=== PATIENT | male | born 1985 | race Caucasian/White ===

== ENCOUNTER 2022-05-07 01:45 | Inpatient (IN) ==
[2022-05-07] MEDS ORDERED: PANTOPRAZOLE 40 MG VIAL IV STA (02:09)
[2022-05-07] MEDS ORDERED: HYDROmorphone 1 MG/1 ML SYRINGE IV STA (02:09)
[2022-05-07] MEDS ORDERED: ONDANSETRON 4 MG/2 ML VIAL IV STA (02:09)
[2022-05-07] MEDS ORDERED: SODIUM CHLORIDE 0.9% 1,000 ML IV STA (02:09)
[2022-05-07 02:16] LABS: Basophils # 0.1 10*3/uL (0.0-0.2); Basophils % 0.3 % (0.0-0.8); Eosinophils # 0.2 10*3/uL (0.0-0.87); Eosinophils % 0.8 % (0.00-10.9); Hematocrit 39.6 VOL% (42.0-52.0); Hemoglobin 12.4 GM/DL (14.0-18.0); Immature Granulocytes % 0.5 %; Immature Granulocytes Absolute 0.09 #; Lymphocytes # 2.9 10*3/uL (1.4-4.0); Lymphocytes % 15.8 % (21.2-54.2); Mean Corpuscular HGB Conc 31.3 GM/DL (32-36); Mean Corpuscular Volume 80.8 FL (87-102); Mean Platelet Volume 8.7 FL (9.6-12.0); Monocytes # 1.2 10*3/uL (0.11-0.8); Monocytes % 6.7 % (1.7-12.7); Neutrophils % 75.9 % (38.7-73.9); Platelet Count 537 T/CUMM (130-400); Red Cell Distribution Width 13.8 % (9.3-17.3); White Blood Count 18.5 T/CUMM (4-12)
[2022-05-07 02:57] LABS: Alanine Aminotransferase 26 U/L (16-61); Alkaline Phosphatase 112 U/L (45-117); Amylase 21 U/L (25-115); Aspartate Amino Transferase 20 U/L (0-37); Bilirubin,Total < 0.39 MG/DL (0.20-1.00); Blood Urea Nitrogen 8 MG/DL (7-18); Calcium 9.3 MG/DL (8.5-10.1); Carbon Dioxide 27 MMOL/L (21-32); Chloride 107 MMOL/L (98-107); Glucose 125 MG/DL (74-106); Osmolality,Calculated 277.4 MOS/KG (273-304); Potassium 4.3 MMOL/L (3.5-5.1); Sodium 140 MMOL/L (136-145); Total Protein 7.6 G/DL (6.4-8.2)
[2022-05-07] MEDS ORDERED: GLUCAGON 1 MG VIAL IM PRN (04:11)
[2022-05-07] MEDS ORDERED: DEXTROSE 10% 250 ML BAG IV PRN (04:11)
[2022-05-07] MEDS ORDERED: ALUMINUM/MAGNES/SIMETH MAX STR 30 ML UDCUP PO PRN (04:11)
[2022-05-07 04:18] LABS: Bilirubin,Urine Negative (Negative); Blood, Urine Negative (Negative); Glucose,Urine (UA) Negative (Negative); Ketones,Urine Negative (Negative); Mucus,Urine Occasional /LPF (Occasional); Nitrite,Urine Negative (Negative); Protein,Urine Negative (Negative); RBC,Urine 2 /HPF (0-4); Urine Appearance Clear (Clear); Urine Color Yellow (Yellow); Urine Specific Gravity 1.015 (1.001-1.035); Urine Urobilinogen 0.2 eU/dL (<2.0); Urine pH 5.5 (4.5-8.0)
[2022-05-07] MEDS ORDERED: LACTATED RINGERS 1,000 ML IV SCH (05:00)
[2022-05-07] MEDS: HYDROmorphone 1 MG/1 ML SYRINGE IV PRN ×5 (05:36→20:33)
[2022-05-07] MEDS: ONDANSETRON 4 MG/2 ML VIAL IV PRN ×4 (05:36→20:33)
[2022-05-07] MEDS: ACETAMINOPHEN 325 MG TABLET PO PRN (06:22)
[2022-05-07] MEDS: DOCUSATE SODIUM 100 MG CAPSULE PO SCH ×2 (09:22→20:34)
[2022-05-07] MEDS: PANTOPRAZOLE 40 MG TABLET PO SCH (09:22)
[2022-05-07] MEDS: PIPERACILLIN/TAZOBACTAM 3,375 MG in SODIUM CHLORIDE 0.9% 100 ML IV SCH ×2 (10:44→20:34)
[2022-05-07] MEDS: BISACODYL 5 MG TABLET PO SCH ×2 (10:44→20:34)
[2022-05-07] MEDS ORDERED: FERROUS SULFATE 325 MG TABLET PO SCH (11:00)
[2022-05-07] MEDS: SODIUM CHLORIDE 0.9% 1,000 ML IV SCH (12:48)
[2022-05-07] MEDS ORDERED: PROMETHAZINE INJ 25 MG in SODIUM CHLORIDE 0.9% 50 ML IV PRN (13:30)
[2022-05-07] MEDS: VANCOMYCIN INJ 750 MG in SODIUM CHLORIDE 0.9% 250 ML IV SCH (14:59)
[2022-05-07] MEDS ORDERED: POLYETHYLENE GLYCOL POWDER 255 GM BOTTLE PO ONE (18:00)
[2022-05-07] MEDS ORDERED: MAGNESIUM CITRATE 300 ML BOTTLE PO ONE (21:00)
[2022-05-07] MEDS ORDERED: MAGNESIUM HYDROXIDE SUSP 30 ML UDCUP PO ONE (21:00)
[2022-05-08] MEDS: ONDANSETRON 4 MG/2 ML VIAL IV PRN ×2 (03:17→12:49)
[2022-05-08] MEDS: VANCOMYCIN INJ 750 MG in SODIUM CHLORIDE 0.9% 250 ML IV SCH ×2 (03:18→16:12)
[2022-05-08] MEDS: HYDROmorphone 1 MG/1 ML SYRINGE IV PRN ×2 (03:18→08:24)
[2022-05-08 04:55] LABS: Basophils # 0.1 10*3/uL (0.0-0.2); Basophils % 0.2 % (0.0-0.8); Hematocrit 38.5 VOL% (42.0-52.0); Immature Granulocytes % 0.9 %; Immature Granulocytes Absolute 0.22 #; Lymphocytes # 1.8 10*3/uL (1.4-4.0); Lymphocytes % 7.3 % (21.2-54.2); Mean Corpuscular HGB Conc 31.2 GM/DL (32-36); Mean Corpuscular Volume 81.2 FL (87-102); Monocytes # 1.2 10*3/uL (0.11-0.8); Monocytes % 4.9 % (1.7-12.7); Neutrophils % 86.7 % (38.7-73.9); Platelet Count 453 T/CUMM (130-400); Red Blood Count 4.74 MC/CUMM (3.8-5.5); White Blood Count 24.3 T/CUMM (4-12)
[2022-05-08 05:13] LABS: Albumin 2.7 G/DL (3.4-5.0); Bilirubin,Total 0.5 MG/DL (0.20-1.00); Calcium 8.8 MG/DL (8.5-10.1); Osmolality,Calculated 272.8 MOS/KG (273-304); Total Protein 7.3 G/DL (6.4-8.2)
[2022-05-08 05:20] LABS: Hypochromia Slight; Lymphocytes 5 % (20-55); Microcytosis Slight; Platelet Estimate Adequate; Total Cells Counted 100
[2022-05-08 05:35] LABS: % Iron Saturation 6.7 % (18-50); Ferritin 276.9 ng/mL (26-388)
[2022-05-08] MEDS: BISACODYL 5 MG TABLET PO SCH (06:17)
[2022-05-08] MEDS: PIPERACILLIN/TAZOBACTAM 3,375 MG in SODIUM CHLORIDE 0.9% 100 ML IV SCH ×3 (06:31→23:35)
[2022-05-08] MEDS ORDERED: LACTATED RINGERS 1,000 ML IV SCH (10:30)
[2022-05-08] MEDS: SODIUM CHLORIDE 0.9% 1,000 ML IV SCH (12:49)
[2022-05-08] MEDS: DOCUSATE SODIUM 100 MG CAPSULE PO SCH ×2 (12:49→23:33)
[2022-05-08] MEDS: PANTOPRAZOLE 40 MG TABLET PO SCH (12:50)
[2022-05-08] MEDS: FERRIC GLUCONATE COMPLEX 125 MG in SODIUM CHLORIDE 0.9% 100 ML IV SCH (12:50)
[2022-05-08] MEDS: ACETAMINOPHEN 325 MG TABLET PO PRN (16:11)
[2022-05-08] MEDS ORDERED: NICOTINE 21 MG/24 HR PATCH TRANSDERM PRN (16:14)
[2022-05-08] MEDS: POLYETHYLENE GLYCOL POWDER 17 GM PACK PO SCH (23:34)
[2022-05-09] MEDS: VANCOMYCIN INJ 750 MG in SODIUM CHLORIDE 0.9% 250 ML IV SCH ×2 (03:40→16:06)
[2022-05-09 06:07] LABS: Basophils % 0.2 % (0.0-0.8); Eosinophils # 0.1 10*3/uL (0.0-0.87); Eosinophils % 0.4 % (0.00-10.9); Hematocrit 28.2 VOL% (42.0-52.0); Hemoglobin 8.9 GM/DL (14.0-18.0); Immature Granulocytes % 0.4 %; Immature Granulocytes Absolute 0.07 #; Lymphocytes # 1.9 10*3/uL (1.4-4.0); Lymphocytes % 12.3 % (21.2-54.2); Mean Corpuscular HGB Conc 31.6 GM/DL (32-36); Mean Corpuscular Volume 79.9 FL (87-102); Mean Platelet Volume 9.4 FL (9.6-12.0); Monocytes # 1.1 10*3/uL (0.11-0.8); Monocytes % 6.9 % (1.7-12.7); Neutrophils % 79.8 % (38.7-73.9); Platelet Count 368 T/CUMM (130-400); Red Blood Count 3.53 MC/CUMM (3.8-5.5); Red Cell Distribution Width 14.2 % (9.3-17.3); White Blood Count 15.6 T/CUMM (4-12)
[2022-05-09] MEDS: PIPERACILLIN/TAZOBACTAM 3,375 MG in SODIUM CHLORIDE 0.9% 100 ML IV SCH ×3 (06:10→21:28)
[2022-05-09 06:39] LABS: Calcium 8.1 MG/DL (8.5-10.1); Osmolality,Calculated 274.5 MOS/KG (273-304); Potassium 4.2 MMOL/L (3.5-5.1)
[2022-05-09] MEDS: POLYETHYLENE GLYCOL POWDER 17 GM PACK PO SCH ×2 (09:14→21:29)
[2022-05-09] MEDS: PANTOPRAZOLE 40 MG TABLET PO SCH (09:14)
[2022-05-09] MEDS: DOCUSATE SODIUM 100 MG CAPSULE PO SCH ×2 (09:14→21:29)
[2022-05-09] MEDS: FERRIC GLUCONATE COMPLEX 125 MG in SODIUM CHLORIDE 0.9% 100 ML IV SCH (09:50)
[2022-05-09] MEDS: SODIUM CHLORIDE 0.9% 1,000 ML IV SCH ×2 (12:00→13:57)
[2022-05-09] MEDS: VANCOMYCIN INJ 1,000 MG in SODIUM CHLORIDE 0.9% 100 ML IV SCH (16:21)
[2022-05-09] MEDS: DICYCLOMINE 10 MG CAPSULE PO SCH (21:29)
[2022-05-10] MEDS: VANCOMYCIN INJ 1,000 MG in SODIUM CHLORIDE 0.9% 100 ML IV SCH ×3 (00:53→15:41)
[2022-05-10] MEDS: HYDROmorphone 1 MG/1 ML SYRINGE IV PRN (03:06)
[2022-05-10] MEDS: ONDANSETRON 4 MG/2 ML VIAL IV PRN (03:09)
[2022-05-10] MEDS: PIPERACILLIN/TAZOBACTAM 3,375 MG in SODIUM CHLORIDE 0.9% 100 ML IV SCH ×3 (06:04→21:49)
[2022-05-10 06:54] LABS: Basophils % 0.3 % (0.0-0.8); Eosinophils # 0.1 10*3/uL (0.0-0.87); Eosinophils % 0.8 % (0.00-10.9); Hematocrit 32.1 VOL% (42.0-52.0); Hemoglobin 9.9 GM/DL (14.0-18.0); Immature Granulocytes % 0.6 %; Immature Granulocytes Absolute 0.08 #; Lymphocytes # 1.8 10*3/uL (1.4-4.0); Lymphocytes % 13.9 % (21.2-54.2); Mean Corpuscular HGB Conc 30.8 GM/DL (32-36); Mean Corpuscular Volume 81.1 FL (87-102); Monocytes # 0.9 10*3/uL (0.11-0.8); Monocytes % 7.1 % (1.7-12.7); Neutrophils % 77.3 % (38.7-73.9); Platelet Count 413 T/CUMM (130-400); Red Blood Count 3.96 MC/CUMM (3.8-5.5); Red Cell Distribution Width 14.3 % (9.3-17.3); White Blood Count 12.8 T/CUMM (4-12)
[2022-05-10 07:14] LABS: Calcium 8.8 MG/DL (8.5-10.1); Osmolality,Calculated 273.5 MOS/KG (273-304); Potassium 3.5 MMOL/L (3.5-5.1)
[2022-05-10 07:17] LABS: Calcium 8.7 MG/DL (8.5-10.1); Osmolality,Calculated 277.3 MOS/KG (273-304); Potassium 3.9 MMOL/L (3.5-5.1)
[2022-05-10] MEDS: POLYETHYLENE GLYCOL POWDER 17 GM PACK PO SCH ×2 (09:24→21:48)
[2022-05-10] MEDS: PANTOPRAZOLE 40 MG TABLET PO SCH (09:24)
[2022-05-10] MEDS: DOCUSATE SODIUM 100 MG CAPSULE PO SCH ×2 (09:24→21:49)
[2022-05-10] MEDS: DICYCLOMINE 10 MG CAPSULE PO SCH ×3 (09:24→21:48)
[2022-05-10] MEDS: FERRIC GLUCONATE COMPLEX 125 MG in SODIUM CHLORIDE 0.9% 100 ML IV SCH (09:25)
[2022-05-10] MEDS: SODIUM CHLORIDE 0.9% 1,000 ML IV SCH ×2 (15:44→15:46)
[2022-05-10] MEDS: ACETAMINOPHEN 325 MG TABLET PO PRN (21:48)
[2022-05-11] MEDS ORDERED: VANCOMYCIN INJ 1,000 MG in SODIUM CHLORIDE 0.9% 100 ML IV SCH (04:00)
[2022-05-11] MEDS: PIPERACILLIN/TAZOBACTAM 3,375 MG in SODIUM CHLORIDE 0.9% 100 ML IV SCH ×3 (05:25→22:12)
[2022-05-11 05:28] LABS: Basophils % 0.3 % (0.0-0.8); Eosinophils # 0.1 10*3/uL (0.0-0.87); Eosinophils % 0.9 % (0.00-10.9); Hematocrit 29.6 VOL% (42.0-52.0); Hemoglobin 9.4 GM/DL (14.0-18.0); Immature Granulocytes % 0.8 %; Immature Granulocytes Absolute 0.12 #; Lymphocytes # 1.9 10*3/uL (1.4-4.0); Lymphocytes % 13.2 % (21.2-54.2); Mean Corpuscular HGB Conc 31.8 GM/DL (32-36); Mean Corpuscular Volume 79.4 FL (87-102); Mean Platelet Volume 9.3 FL (9.6-12.0); Monocytes # 1.2 10*3/uL (0.11-0.8); Monocytes % 8.5 % (1.7-12.7); Neutrophils % 76.3 % (38.7-73.9); Platelet Count 446 T/CUMM (130-400); Red Blood Count 3.73 MC/CUMM (3.8-5.5); Red Cell Distribution Width 14.4 % (9.3-17.3); White Blood Count 14.6 T/CUMM (4-12)
[2022-05-11 06:16] LABS: Calcium 8.3 MG/DL (8.5-10.1); Osmolality,Calculated 280.1 MOS/KG (273-304); Potassium 3.5 MMOL/L (3.5-5.1)
[2022-05-11] MEDS ORDERED: DEXAMETHASONE 4 MG/1 ML VIAL ONE (06:29)
[2022-05-11] MEDS ORDERED: ONDANSETRON 4 MG/2 ML VIAL ONE (06:29)
[2022-05-11] MEDS ORDERED: SEVOFLURANE 1 UNIT/15 MINUTE INH ONE (06:29)
[2022-05-11] MEDS ORDERED: ROCURONIUM 50 MG/5 ML VIAL IV ONE (06:29)
[2022-05-11] MEDS ORDERED: MIDAZOLAM 2 MG/2 ML VIAL ONE (06:29)
[2022-05-11] MEDS ORDERED: LACTATED RINGERS 1,000 ML IV ONE (06:29)
[2022-05-11] MEDS ORDERED: propofoL 200 MG/20 ML VIAL IV ONE ×2 (06:29→08:28)
[2022-05-11] MEDS ORDERED: fentaNYL 100 MCG/2 ML VIAL ONE ×2 (06:29→07:46)
[2022-05-11] MEDS ORDERED: ROPIVACAINE 0.5% 30 ML VIAL ONE (06:41)
[2022-05-11] MEDS ORDERED: PHENYLEPHRINE 1 MG/10 ML SYRINGE IV ONE (07:55)
[2022-05-11] MEDS ORDERED: GLYCOPYRROLATE 0.4 MG/2 ML VIAL ONE (08:30)
[2022-05-11] MEDS ORDERED: NEOSTIGMINE 10 MG/10 ML VIAL ONE (08:30)
[2022-05-11] MEDS: fentaNYL 2 MCG/ROPIV 0.2% EPID 100 ML EPIDURAL SCH ×3 (09:00→21:30)
[2022-05-11] MEDS ORDERED: ALBUTEROL/IPRATROPIUM 3 ML NEB RESP TX PRN (09:13)
[2022-05-11] MEDS ORDERED: HYDROmorphone 1 MG/1 ML SYRINGE IV PRN (09:13)
[2022-05-11] MEDS ORDERED: LIDOCAINE 100 MG/5 ML SYRINGE ONE (09:29)
[2022-05-11] MEDS: FERRIC GLUCONATE COMPLEX 125 MG in SODIUM CHLORIDE 0.9% 100 ML IV SCH (11:19)
[2022-05-11] MEDS: LACTATED RINGERS 1,000 ML IV SCH ×2 (12:50→22:11)
[2022-05-11] MEDS: POLYETHYLENE GLYCOL POWDER 17 GM PACK PO SCH ×2 (12:52→22:11)
[2022-05-11] MEDS: DOCUSATE SODIUM 100 MG CAPSULE PO SCH ×2 (12:52→22:11)
[2022-05-11] MEDS: DICYCLOMINE 10 MG CAPSULE PO SCH ×3 (12:52→22:11)
[2022-05-11] MEDS: PANTOPRAZOLE 40 MG TABLET PO SCH (12:54)
[2022-05-11] MEDS: SODIUM CHLORIDE 0.9% 1,000 ML IV SCH (12:54)
[2022-05-11] MEDS ORDERED: buprenorphine HCL 0.3 MG/ML VIAL ONE (14:22)
[2022-05-11] MEDS ORDERED: KETOROLAC 30 MG/1 ML VIAL ONE (14:32)
[2022-05-12] MEDS: KETOROLAC 15 MG/1 ML VIAL IV PRN ×3 (01:16→17:43)
[2022-05-12] MEDS: LACTATED RINGERS 1,000 ML IV SCH ×2 (03:21→06:37)
[2022-05-12] MEDS: PIPERACILLIN/TAZOBACTAM 3,375 MG in SODIUM CHLORIDE 0.9% 100 ML IV SCH ×3 (05:06→21:25)
[2022-05-12 05:54] LABS: Basophils # 0.1 10*3/uL (0.0-0.2); Basophils % 0.3 % (0.0-0.8); Eosinophils % 0.1 % (0.00-10.9); Hematocrit 32.2 VOL% (42.0-52.0); Hemoglobin 10.1 GM/DL (14.0-18.0); Immature Granulocytes % 0.9 %; Immature Granulocytes Absolute 0.15 #; Lymphocytes # 1.8 10*3/uL (1.4-4.0); Lymphocytes % 11.4 % (21.2-54.2); Mean Corpuscular HGB Conc 31.4 GM/DL (32-36); Mean Corpuscular Volume 81.1 FL (87-102); Mean Platelet Volume 9.2 FL (9.6-12.0); Monocytes # 1.1 10*3/uL (0.11-0.8); Monocytes % 6.9 % (1.7-12.7); Neutrophils % 80.4 % (38.7-73.9); Platelet Count 496 T/CUMM (130-400); Red Blood Count 3.97 MC/CUMM (3.8-5.5); Red Cell Distribution Width 14.7 % (9.3-17.3); White Blood Count 15.8 T/CUMM (4-12)
[2022-05-12 06:12] LABS: Calcium 8.5 MG/DL (8.5-10.1); Osmolality,Calculated 289.6 MOS/KG (273-304); Potassium 4.4 MMOL/L (3.5-5.1)
[2022-05-12] MEDS: fentaNYL 2 MCG/ROPIV 0.2% EPID 100 ML EPIDURAL SCH ×3 (06:35→23:13)
[2022-05-12] MEDS: PANTOPRAZOLE 40 MG VIAL IV SCH (09:20)
[2022-05-12] MEDS: FERRIC GLUCONATE COMPLEX 125 MG in SODIUM CHLORIDE 0.9% 100 ML IV SCH (09:21)
[2022-05-12] MEDS ORDERED: LACTATED RINGERS 1,000 ML IV ONE (09:58)
[2022-05-12] MEDS ORDERED: ENOXAPARIN 40 MG/0.4 ML SYRINGE SUBCUT SCH (10:00)
[2022-05-12] MEDS: DOCUSATE SODIUM 100 MG CAPSULE PO SCH ×2 (10:07→21:59)
[2022-05-12] MEDS: POLYETHYLENE GLYCOL POWDER 17 GM PACK PO SCH ×2 (10:07→22:00)
[2022-05-12] MEDS: DICYCLOMINE 10 MG CAPSULE PO SCH ×3 (10:08→21:59)
[2022-05-13] MEDS: LACTATED RINGERS 1,000 ML IV SCH ×3 (03:03→13:27)
[2022-05-13] MEDS: PIPERACILLIN/TAZOBACTAM 3,375 MG in SODIUM CHLORIDE 0.9% 100 ML IV SCH ×3 (04:59→21:26)
[2022-05-13 05:11] LABS: Basophils % 0.2 % (0.0-0.8); Eosinophils # 0.1 10*3/uL (0.0-0.87); Eosinophils % 0.5 % (0.00-10.9); Hematocrit 28.3 VOL% (42.0-52.0); Hemoglobin 8.9 GM/DL (14.0-18.0); Immature Granulocytes % 0.9 %; Immature Granulocytes Absolute 0.17 #; Lymphocytes # 1.8 10*3/uL (1.4-4.0); Mean Corpuscular HGB Conc 31.4 GM/DL (32-36); Mean Corpuscular Volume 80.4 FL (87-102); Mean Platelet Volume 9.3 FL (9.6-12.0); Monocytes % 5.1 % (1.7-12.7); Neutrophils % 84.3 % (38.7-73.9); Platelet Count 515 T/CUMM (130-400); Red Blood Count 3.52 MC/CUMM (3.8-5.5); Red Cell Distribution Width 15.4 % (9.3-17.3); White Blood Count 19.6 T/CUMM (4-12)
[2022-05-13 05:20] LABS: Calcium 8.3 MG/DL (8.5-10.1); Potassium 3.8 MMOL/L (3.5-5.1)
[2022-05-13] MEDS ORDERED: MIDAZOLAM 2 MG/2 ML VIAL ONE (07:44)
[2022-05-13] MEDS ORDERED: propofoL 200 MG/20 ML VIAL IV ONE (07:44)
[2022-05-13] MEDS ORDERED: fentaNYL 100 MCG/2 ML VIAL ONE (07:44)
[2022-05-13] MEDS ORDERED: LIDOCAINE 2% 5 ML VIAL ONE (07:44)
[2022-05-13] MEDS: fentaNYL 2 MCG/ROPIV 0.2% EPID 100 ML EPIDURAL SCH ×3 (08:00→22:42)
[2022-05-13] MEDS ORDERED: buprenorphine HCL 0.3 MG/ML VIAL ONE (08:09)
[2022-05-13] MEDS ORDERED: SUCCINYLCHOLINE 200 MG/10 ML VIAL ONE (09:45)
[2022-05-13] MEDS ORDERED: ONDANSETRON 4 MG/2 ML VIAL ONE (09:45)
[2022-05-13] MEDS ORDERED: SEVOFLURANE 1 UNIT/15 MINUTE INH ONE (09:45)
[2022-05-13] MEDS: POLYETHYLENE GLYCOL POWDER 17 GM PACK PO SCH ×2 (10:22→21:28)
[2022-05-13] MEDS: DICYCLOMINE 10 MG CAPSULE PO SCH ×3 (10:22→21:27)
[2022-05-13] MEDS: DOCUSATE SODIUM 100 MG CAPSULE PO SCH ×2 (10:22→21:27)
[2022-05-13] MEDS: PANTOPRAZOLE 40 MG VIAL IV SCH (10:57)
[2022-05-13] MEDS: metroNIDAZOLE INJ 500 MG/100 ML PREMIX IV SCH (17:57)
[2022-05-14] MEDS: ACETAMINOPHEN 325 MG TABLET PO PRN ×2 (00:23→05:01)
[2022-05-14] MEDS: metroNIDAZOLE INJ 500 MG/100 ML PREMIX IV SCH ×2 (00:38→07:07)
[2022-05-14] MEDS: PIPERACILLIN/TAZOBACTAM 3,375 MG in SODIUM CHLORIDE 0.9% 100 ML IV SCH ×3 (05:00→21:06)
[2022-05-14 05:01] LABS: Basophils % 0.2 % (0.0-0.8); Eosinophils # 0.1 10*3/uL (0.0-0.87); Eosinophils % 0.5 % (0.00-10.9); Hematocrit 27.9 VOL% (42.0-52.0); Hemoglobin 8.9 GM/DL (14.0-18.0); Immature Granulocytes % 2.4 %; Immature Granulocytes Absolute 0.58 #; Lymphocytes # 1.5 10*3/uL (1.4-4.0); Mean Corpuscular HGB Conc 31.9 GM/DL (32-36); Mean Corpuscular Volume 79.9 FL (87-102); Mean Platelet Volume 9.2 FL (9.6-12.0); Monocytes # 1.4 10*3/uL (0.11-0.8); Monocytes % 5.7 % (1.7-12.7); Neutrophils % 85.2 % (38.7-73.9); Platelet Count 502 T/CUMM (130-400); Red Blood Count 3.49 MC/CUMM (3.8-5.5); Red Cell Distribution Width 15.2 % (9.3-17.3); White Blood Count 24.4 T/CUMM (4-12)
[2022-05-14] MEDS: LACTATED RINGERS 1,000 ML IV SCH ×2 (05:01→16:20)
[2022-05-14 05:19] LABS: Albumin 1.5 G/DL (3.4-5.0); Bilirubin,Total 0.5 MG/DL (0.20-1.00); Calcium 7.7 MG/DL (8.5-10.1); Osmolality,Calculated 281.3 MOS/KG (273-304); Potassium 3.5 MMOL/L (3.5-5.1); Total Protein 4.9 G/DL (6.4-8.2)
[2022-05-14 05:26] LABS: Hypochromia Slight; Lymphocytes 8 % (20-55); Microcytosis Slight; Platelet Estimate Increased; Total Cells Counted 100
[2022-05-14] MEDS: DICYCLOMINE 10 MG CAPSULE PO SCH ×3 (08:21→21:05)
[2022-05-14] MEDS: POLYETHYLENE GLYCOL POWDER 17 GM PACK PO SCH (08:21)
[2022-05-14] MEDS: DOCUSATE SODIUM 100 MG CAPSULE PO SCH (08:21)
[2022-05-14 08:52] LABS: Mucus,Urine Occasional /LPF (Occasional); RBC,Urine 7 /HPF (0-4); Squamous Epithelial Cell,Urine Occasional /HPF (0-10)
[2022-05-14 09:01] LABS: Urine Appearance Clear (Clear); Urine Color Yellow (Yellow); Urine pH 5.5 (4.5-8.0)
[2022-05-14] MEDS: PANTOPRAZOLE 40 MG VIAL IV SCH (09:02)
[2022-05-14 09:03] LABS: Bilirubin,Urine Negative (Negative); Blood, Urine Trace mg/dL (Negative); Glucose,Urine (UA) Negative (Negative); Ketones,Urine Negative (Negative); Nitrite,Urine Negative (Negative); Protein,Urine Negative (Negative); Urine Specific Gravity 1.015 (1.001-1.035); Urine Urobilinogen 0.2 eU/dL (<2.0)
[2022-05-14] MEDS ORDERED: buprenorphine HCL 0.3 MG/ML VIAL ONE (09:16)
[2022-05-14] MEDS: FERRIC GLUCONATE COMPLEX 125 MG in SODIUM CHLORIDE 0.9% 100 ML IV SCH (11:49)
[2022-05-14] MEDS: LINEZOLID INJ 600 MG/300 ML PREMIX IV SCH (13:04)
[2022-05-15] MEDS: LINEZOLID INJ 600 MG/300 ML PREMIX IV SCH ×2 (01:33→11:18)
[2022-05-15] MEDS: LACTATED RINGERS 1,000 ML IV SCH ×5 (01:48→12:37)
[2022-05-15 05:29] LABS: Basophils # 0.1 10*3/uL (0.0-0.2); Basophils % 0.3 % (0.0-0.8); Eosinophils # 0.5 10*3/uL (0.0-0.87); Eosinophils % 2.4 % (0.00-10.9); Hematocrit 26.9 VOL% (42.0-52.0); Hemoglobin 8.6 GM/DL (14.0-18.0); Immature Granulocytes % 0.8 %; Immature Granulocytes Absolute 0.17 #; Lymphocytes # 1.7 10*3/uL (1.4-4.0); Lymphocytes % 8.1 % (21.2-54.2); Mean Corpuscular Volume 79.6 FL (87-102); Mean Platelet Volume 9.3 FL (9.6-12.0); Monocytes # 1.1 10*3/uL (0.11-0.8); Neutrophils % 83.4 % (38.7-73.9); Platelet Count 507 T/CUMM (130-400); Red Blood Count 3.38 MC/CUMM (3.8-5.5); Red Cell Distribution Width 15.7 % (9.3-17.3)
[2022-05-15] MEDS: PIPERACILLIN/TAZOBACTAM 3,375 MG in SODIUM CHLORIDE 0.9% 100 ML IV SCH ×3 (05:42→20:58)
[2022-05-15 05:53] LABS: Alanine Aminotransferase 14 U/L (16-61); Albumin 1.4 G/DL (3.4-5.0); Alkaline Phosphatase 104 U/L (45-117); Aspartate Amino Transferase 13 U/L (0-37); Bilirubin,Total < 0.39 MG/DL (0.20-1.00); Blood Urea Nitrogen 12 MG/DL (7-18); Carbon Dioxide 22 MMOL/L (21-32); Chloride 109 MMOL/L (98-107); Glucose 98 MG/DL (74-106); Osmolality,Calculated 280.3 MOS/KG (273-304); Potassium 3.1 MMOL/L (3.5-5.1); Sodium 141 MMOL/L (136-145); Total Protein 5.2 G/DL (6.4-8.2)
[2022-05-15 06:01] LABS: Band Neutrophils 2 % (0-10); Hypochromia 1+; Lymphocytes 3 % (20-55); Microcytosis 1+; Ovalocytes Slight; Polychromasia Slight; Total Cells Counted 100
[2022-05-15] MEDS: PANTOPRAZOLE 40 MG VIAL IV SCH (09:36)
[2022-05-15] MEDS: FERRIC GLUCONATE COMPLEX 125 MG in SODIUM CHLORIDE 0.9% 100 ML IV SCH (09:39)
[2022-05-15] MEDS: ENOXAPARIN 40 MG/0.4 ML SYRINGE SUBCUT SCH (09:43)
[2022-05-15] MEDS: DICYCLOMINE 10 MG CAPSULE PO SCH ×3 (09:43→20:58)
[2022-05-15] MEDS: HYDROmorphone 1 MG/1 ML SYRINGE IV PRN (11:15)
[2022-05-16] MEDS: LINEZOLID INJ 600 MG/300 ML PREMIX IV SCH ×2 (00:51→12:18)
[2022-05-16] MEDS: PIPERACILLIN/TAZOBACTAM 3,375 MG in SODIUM CHLORIDE 0.9% 100 ML IV SCH ×3 (04:48→23:18)
[2022-05-16 05:50] LABS: Basophils % 0.3 % (0.0-0.8); Eosinophils # 0.6 10*3/uL (0.0-0.87); Eosinophils % 4.7 % (0.00-10.9); Hematocrit 27.5 VOL% (42.0-52.0); Hemoglobin 8.6 GM/DL (14.0-18.0); Immature Granulocytes % 0.9 %; Immature Granulocytes Absolute 0.12 #; Lymphocytes # 1.8 10*3/uL (1.4-4.0); Lymphocytes % 13.9 % (21.2-54.2); Mean Corpuscular HGB Conc 31.3 GM/DL (32-36); Mean Corpuscular Volume 81.4 FL (87-102); Mean Platelet Volume 9.4 FL (9.6-12.0); Monocytes % 7.4 % (1.7-12.7); Neutrophils % 72.8 % (38.7-73.9); Platelet Count 562 T/CUMM (130-400); Red Blood Count 3.38 MC/CUMM (3.8-5.5); Red Cell Distribution Width 16.1 % (9.3-17.3); White Blood Count 12.9 T/CUMM (4-12)
[2022-05-16 06:14] LABS: Alanine Aminotransferase 15 U/L (16-61); Albumin 1.4 G/DL (3.4-5.0); Alkaline Phosphatase 80 U/L (45-117); Aspartate Amino Transferase 11 U/L (0-37); Bilirubin,Total < 0.39 MG/DL (0.20-1.00); Blood Urea Nitrogen 8 MG/DL (7-18); Carbon Dioxide 25 MMOL/L (21-32); Chloride 112 MMOL/L (98-107); Glucose 110 MG/DL (74-106); Osmolality,Calculated 284.8 MOS/KG (273-304); Potassium 2.9 MMOL/L (3.5-5.1); Sodium 144 MMOL/L (136-145); Total Protein 5.2 G/DL (6.4-8.2)
[2022-05-16] MEDS: ENOXAPARIN 40 MG/0.4 ML SYRINGE SUBCUT SCH (08:43)
[2022-05-16] MEDS: PANTOPRAZOLE 40 MG VIAL IV SCH (09:02)
[2022-05-16] MEDS: FERRIC GLUCONATE COMPLEX 125 MG in SODIUM CHLORIDE 0.9% 100 ML IV SCH (09:03)
[2022-05-16] MEDS: DICYCLOMINE 10 MG CAPSULE PO SCH ×3 (09:03→23:18)
[2022-05-17] MEDS: LINEZOLID INJ 600 MG/300 ML PREMIX IV SCH ×2 (03:20→16:26)
[2022-05-17] MEDS: PIPERACILLIN/TAZOBACTAM 3,375 MG in SODIUM CHLORIDE 0.9% 100 ML IV SCH ×2 (04:29→18:40)
[2022-05-17 08:07] LABS: Basophils % 0.3 % (0.0-0.8); Eosinophils # 0.4 10*3/uL (0.0-0.87); Eosinophils % 2.8 % (0.00-10.9); Hematocrit 28.2 VOL% (42.0-52.0); Hemoglobin 9.1 GM/DL (14.0-18.0); Immature Granulocytes % 0.8 %; Lymphocytes # 1.9 10*3/uL (1.4-4.0); Lymphocytes % 15.2 % (21.2-54.2); Mean Corpuscular HGB Conc 32.3 GM/DL (32-36); Mean Corpuscular Volume 79.2 FL (87-102); Mean Platelet Volume 9.2 FL (9.6-12.0); Monocytes # 0.8 10*3/uL (0.11-0.8); Monocytes % 6.5 % (1.7-12.7); Neutrophils % 74.4 % (38.7-73.9); Platelet Count 599 T/CUMM (130-400); Red Blood Count 3.56 MC/CUMM (3.8-5.5); Red Cell Distribution Width 16.1 % (9.3-17.3); White Blood Count 12.3 T/CUMM (4-12)
[2022-05-17 08:34] LABS: Alanine Aminotransferase 18 U/L (16-61); Albumin 1.6 G/DL (3.4-5.0); Alkaline Phosphatase 86 U/L (45-117); Aspartate Amino Transferase 20 U/L (0-37); Bilirubin,Total < 0.39 MG/DL (0.20-1.00); Blood Urea Nitrogen 5 MG/DL (7-18); Calcium 8.1 MG/DL (8.5-10.1); Carbon Dioxide 24 MMOL/L (21-32); Chloride 112 MMOL/L (98-107); Glucose 91 MG/DL (74-106); Osmolality,Calculated 282.8 MOS/KG (273-304); Potassium 2.9 MMOL/L (3.5-5.1); Sodium 144 MMOL/L (136-145); Total Protein 5.5 G/DL (6.4-8.2)
[2022-05-17] MEDS: FERRIC GLUCONATE COMPLEX 125 MG in SODIUM CHLORIDE 0.9% 100 ML IV SCH (09:29)
[2022-05-17] MEDS: ENOXAPARIN 40 MG/0.4 ML SYRINGE SUBCUT SCH (09:34)
[2022-05-17] MEDS: DICYCLOMINE 10 MG CAPSULE PO SCH ×3 (10:23→21:02)
[2022-05-17] MEDS: PANTOPRAZOLE 40 MG VIAL IV SCH (10:24)
[2022-05-17] MEDS ORDERED: POTASSIUM CHLORIDE INJ 50 MEQ in SODIUM CHLORIDE 0.9% 500 ML IV ONE (11:00)
[2022-05-17] MEDS: HYDROmorphone 1 MG/1 ML SYRINGE IV PRN (21:01)
[2022-05-18] MEDS: LINEZOLID INJ 600 MG/300 ML PREMIX IV SCH ×2 (00:20→15:57)
[2022-05-18] MEDS: PIPERACILLIN/TAZOBACTAM 3,375 MG in SODIUM CHLORIDE 0.9% 100 ML IV SCH ×3 (02:25→18:30)
[2022-05-18] MEDS: HYDROmorphone 1 MG/1 ML SYRINGE IV PRN (02:28)
[2022-05-18 05:47] LABS: Basophils # 0.1 10*3/uL (0.0-0.2); Basophils % 0.4 % (0.0-0.8); Eosinophils # 0.5 10*3/uL (0.0-0.87); Eosinophils % 3.7 % (0.00-10.9); Hematocrit 27.3 VOL% (42.0-52.0); Hemoglobin 8.5 GM/DL (14.0-18.0); Immature Granulocytes Absolute 0.12 #; Lymphocytes # 2.2 10*3/uL (1.4-4.0); Lymphocytes % 17.5 % (21.2-54.2); Mean Corpuscular HGB Conc 31.1 GM/DL (32-36); Mean Corpuscular Volume 81.3 FL (87-102); Mean Platelet Volume 9.6 FL (9.6-12.0); Monocytes % 8.2 % (1.7-12.7); Neutrophils % 69.2 % (38.7-73.9); Platelet Count 571 T/CUMM (130-400); Red Blood Count 3.36 MC/CUMM (3.8-5.5); Red Cell Distribution Width 16.3 % (9.3-17.3); White Blood Count 12.3 T/CUMM (4-12)
[2022-05-18 06:08] LABS: Calcium 8.2 MG/DL (8.5-10.1); Osmolality,Calculated 282.8 MOS/KG (273-304); Potassium 3.2 MMOL/L (3.5-5.1)
[2022-05-18] MEDS ORDERED: SIMETHICONE CHEW 80 MG TABLET PO PRN (08:15)
[2022-05-18] MEDS ORDERED: oxyCODONE/ACETAMINOPHEN 5-325 MG TABLET PO PRN (10:31)
[2022-05-18] MEDS: ENOXAPARIN 40 MG/0.4 ML SYRINGE SUBCUT SCH (10:46)
[2022-05-18] MEDS: DICYCLOMINE 10 MG CAPSULE PO SCH ×3 (10:46→21:35)
[2022-05-18] MEDS: PANTOPRAZOLE 40 MG VIAL IV SCH (10:47)
[2022-05-18] MEDS: FERRIC GLUCONATE COMPLEX 125 MG in SODIUM CHLORIDE 0.9% 100 ML IV SCH (10:53)
[2022-05-18] MEDS: POTASSIUM CHLORIDE RIDER 10 MEQ/100 ML PREMIX IV PRN ×2 (21:35→22:35)
[2022-05-19] MEDS: PIPERACILLIN/TAZOBACTAM 3,375 MG in SODIUM CHLORIDE 0.9% 100 ML IV SCH ×2 (02:26→12:09)
[2022-05-19] MEDS: LINEZOLID INJ 600 MG/300 ML PREMIX IV SCH (04:12)
[2022-05-19 05:42] LABS: Basophils % 0.3 % (0.0-0.8); Eosinophils # 0.4 10*3/uL (0.0-0.87); Eosinophils % 2.9 % (0.00-10.9); Hematocrit 26.6 VOL% (42.0-52.0); Hemoglobin 8.3 GM/DL (14.0-18.0); Immature Granulocytes Absolute 0.14 #; Lymphocytes # 2.1 10*3/uL (1.4-4.0); Lymphocytes % 14.8 % (21.2-54.2); Mean Corpuscular HGB Conc 31.2 GM/DL (32-36); Mean Corpuscular Volume 81.8 FL (87-102); Mean Platelet Volume 9.3 FL (9.6-12.0); Monocytes # 1.1 10*3/uL (0.11-0.8); Platelet Count 530 T/CUMM (130-400); Red Blood Count 3.25 MC/CUMM (3.8-5.5); Red Cell Distribution Width 16.9 % (9.3-17.3)
[2022-05-19 06:01] LABS: Osmolality,Calculated 284.7 MOS/KG (273-304); Potassium 3.4 MMOL/L (3.5-5.1)
[2022-05-19] MEDS: PANTOPRAZOLE 40 MG VIAL IV SCH (10:04)
[2022-05-19] MEDS: DICYCLOMINE 10 MG CAPSULE PO SCH (10:04)
[2022-05-19] MEDS: ENOXAPARIN 40 MG/0.4 ML SYRINGE SUBCUT SCH (10:16)
[2022-05-19 13:05] VITALS: BP 114/73
== END 2022-05-19 13:11 | disposition home health service (06) | DRG 329 ==
LOC: N.ED 01:45 → N.EDINP 04:11 → SUATTDRO 04:11 → N.5E 04:42
PROVIDERS: ADMIT Hospitalist; ATTEND Internal Medicine
PROC: COLONBX (2022-05-08 08:35)